=== PATIENT | female | born 1955 | race Caucasian/White ===

== ENCOUNTER 2018-10-29 09:01 | Outpatient (CLI) | payer OTHER ==
[2018-10-29 17:53] LABS: BASOPHILS # (AUTO) 0.1 10^3/uL (0.0-0.1); BASOPHILS % (AUTO) 0.8 %; EOSINOPHILS # (AUTO) 0.1 10^3/uL (0.0-0.7); EOSINOPHILS % (AUTO) 1.4 %; HGB - HEMOGLOBIN 14.4 g/dL (12.0-16.0); LYMPHOCYTES # (AUTO) 1.5 10^3/uL (1.5-3.5); LYMPHOCYTES % (AUTO) 23.4 %; MEAN CORPUSCULAR HGB CONC 30.6 g/dL (32.0-36.0); MEAN CORPUSCULAR VOLUME 91.4 fL (81.0-99.0); MEAN PLATELET VOLUME 10.6 fL (7.9-10.8); MONOCYTES # (AUTO) 0.4 10^3/uL (0.0-1.0); NEUTROPHILS # (AUTO) 4.3 10^3/uL (1.5-6.6); NEUTROPHILS % (AUTO) 67.2 %; PLT - PLATELET COUNT 321 10^3/uL (130-450); RED BLOOD COUNT 5.14 10^6/uL (4.20-5.40); RED CELL DISTRIBUTION WIDTH 13.3 % (12.0-15.0); WHITE BLOOD COUNT 6.3 x10^3/uL (4.8-10.8)
[2018-10-29 18:07] LABS: HB2 TOTAL 15.2 g/dL; HEMOGLOBIN A1C 0.63 g/dL; HEMOGLOBIN A1C % 5.9 % (4.6-6.2)
[2018-10-29 18:09] LABS: RHEUMATOID FACTOR NEGATIVE (Negative)
[2018-10-29 18:13] LABS: ALBUMIN 4.3 g/dL (3.2-5.5); ALBUMIN/GLOBULIN RATIO 1.3 (1.0-2.2); ALKALINE PHOSPHATASE 84 IU/L (42-121); ALT ALANINE AMINOTRANSFERASE 29 IU/L (10-60); AST ASPARTATE AMINOTRANSFERASE 25 IU/L (10-42); BILIRUBIN,TOTAL 0.8 mg/dL (0.2-1.0); BUN - BLOOD UREA NITROGEN 16 mg/dL (6-20); CALCIUM 10.3 mg/dL (8.5-10.3); CARBON DIOXIDE - CO2 26 mmol/L (21-32); CHLORIDE 103 mmol/L (101-111); CHOL/HDL RATIO 4.7 (<4.4); CHOLESTEROL 284 mg/dL; CREATININE 0.9 mg/dL (0.4-1.0); GFR - MDRD 63 (>89); GLUCOSE 124 mg/dL (70-100); HDL CHOLESTEROL 61 mg/dL; LDL CHOLESTEROL,CALCULATED 193 mg/dL; LDL/HDL RATIO 3.2 (<4.4); SODIUM 139 mmol/L (135-145); TOTAL PROTEIN 7.5 g/dL (6.7-8.2); VLDL CHOLESTEROL 30 mg/dL
[2018-10-31 13:01] LABS: ANA SCREEN NEGATIVE (NEGATIVE)
== END 2018-10-29 09:02 | disposition home or self-care (01) ==
LOC: LAB.F 09:01
PROVIDERS: ATTEND Registered Nurse
DX: Z00.00 Encounter for general adult medical examination without abnormal findings (principal); R53.83 Other fatigue; E78.5 Hyperlipidemia, unspecified; G47.9 Sleep disorder, unspecified; M25.549 Pain in joints of unspecified hand
CPT/HCPCS: 36415; 80053; 80061; 83036; 83721; 84443; 85025; 86038; 86430

== ENCOUNTER 2018-11-25 13:48 | Outpatient (CLI) | payer OTHER ==
--- NOTE | 2018-11-26 10:21 | DEXA Report ---
Reason: PREVENTIVE CARE,MENOPAUSAL STATE Procedure Date: 11/25/2018 Accession Number: [id number] / [id number] Procedure: DEX - Dexa Spine and/or Hip CPT Code: FULL RESULT: EXAM: Dexa Spine and/or Hip DATE: 11/25/2018 2:24 PM CLINICAL HISTORY: PREVENTIVE CARE,MENOPAUSAL STATE TECHNIQUE: Dual energy x-ray absorptiometry (DXA) was performed on a [employer]. Regions measured are the AP Spine, femoral neck, and if needed forearm. COMPARISON: None. In accordance with the International Society for Clinical Densitometry (ISCD) guidelines, data from previous exams may be reanalyzed using current recommendations and techniques. This is done to allow a more accurate basis for comparison with the current study. FINDINGS: The data for the lumbar spine is as follows: BMD (g/cm/cm) T-SCORE Z-SCORE REGION L1 1.184 0.5 0.8 L2 1.226 0.2 0.6 L3 1.379 1.5 1.9 L4 1.496 2.5 2.8 TOTAL 1.333 1.3 1.6 NOTE: All evaluable vertebrae are used for classification The data for the hip is as follows: BMD (g/cm/cm) T-SCORE Z-SCORE REGION Neck 0.851 -1.3 -0.7 TOTAL 0.870 -1.1 -0.8 NOTE: The femoral neck or total proximal femur, whichever is lowest, is used for classification. IMPRESSION: THE WHO CLASSIFICATION BASED ON THE INTERNATIONAL REFERENCE STANDARD IS OSTEOPENIA. THE FRACTURE RISK IS INCREASED. RECOMMENDATION: Patients with diagnosis of osteoporosis or osteopenia should have regular bone mineral density assessment. For those eligible for Medicare, routine testing is allowed once every 2 years. Testing frequency can be increased for patients who have rapidly progressing disease or for those who are receiving medical therapy to restore bone mass. COMMENT: World Health Organization (WHO) definitions for osteoporosis and osteopenia: NORMAL BMD: T-score at -1.0 or higher, fracture risk is low OSTEOPENIA BMD: T-score between -1.0 and -2.5, fracture risk is increased. OSTEOPOROSIS BMD: T-score at -2.5 or lower, fracture risk is high. National Osteoporosis Foundation recommends: 1. Obtain adequate dietary calcium (at least 1200 mg per day) and vitamin D (400-800 international units per day). 2. Participate, as appropriate, in regular weightbearing and muscle-strengthening exercise. 3. Avoid tobacco use and reduce alcohol and caffeine intake. 4. For more detailed information see the website at www.NOF.org.
== END 2018-11-25 13:49 | disposition home or self-care (01) ==
LOC: DI 13:48
PROVIDERS: ATTEND Registered Nurse
DX: M85.89 Other specified disorders of bone density and structure, multiple sites (principal); Z78.0 Asymptomatic menopausal state
CPT/HCPCS: 77080

== ENCOUNTER 2019-12-31 07:30 | Outpatient (CLI) | payer MEDICARE, OTHER ==
[2019-12-31 15:26] LABS: BASOPHILS # (AUTO) 0.1 10^3/uL (0.0-0.1); BASOPHILS % (AUTO) 0.7 %; EOSINOPHILS # (AUTO) 0.1 10^3/uL (0.0-0.7); EOSINOPHILS % (AUTO) 1.3 %; HGB - HEMOGLOBIN 13.7 g/dL (12.0-16.0); LYMPHOCYTES # (AUTO) 1.6 10^3/uL (1.5-3.5); LYMPHOCYTES % (AUTO) 23.5 %; MEAN CORPUSCULAR HEMOGLOBIN 27.9 pg (27.0-31.0); MEAN CORPUSCULAR HGB CONC 31.1 g/dL (32.0-36.0); MEAN CORPUSCULAR VOLUME 89.8 fL (81.0-99.0); MONOCYTES # (AUTO) 0.5 10^3/uL (0.0-1.0); MONOCYTES % (AUTO) 7.7 %; NEUTROPHILS # (AUTO) 4.6 10^3/uL (1.5-6.6); NEUTROPHILS % (AUTO) 66.5 %; PLT - PLATELET COUNT 341 10^3/uL (130-450); RED BLOOD COUNT 4.91 10^6/uL (4.20-5.40); RED CELL DISTRIBUTION WIDTH 13.1 % (12.0-15.0); WHITE BLOOD COUNT 6.9 x10^3/uL (4.8-10.8)
[2019-12-31 15:49] LABS: ALBUMIN 4.2 g/dL (3.2-5.5); ALBUMIN/GLOBULIN RATIO 1.3 (1.0-2.2); ALKALINE PHOSPHATASE 97 IU/L (42-121); ALT ALANINE AMINOTRANSFERASE 27 IU/L (10-60); AST ASPARTATE AMINOTRANSFERASE 22 IU/L (10-42); BILIRUBIN,TOTAL 0.8 mg/dL (0.2-1.0); BUN - BLOOD UREA NITROGEN 16 mg/dL (6-20); CALCIUM 10.5 mg/dL (8.5-10.3); CARBON DIOXIDE - CO2 30 mmol/L (21-32); CHLORIDE 100 mmol/L (101-111); CHOL/HDL RATIO 4.9 (<4.4); CHOLESTEROL 267 mg/dL; GLUCOSE 139 mg/dL (70-100); HDL CHOLESTEROL 54 mg/dL; LDL CHOLESTEROL,CALCULATED 181 mg/dL; LDL/HDL RATIO 3.4 (<4.4); SODIUM 138 mmol/L (135-145); TOTAL PROTEIN 7.4 g/dL (6.7-8.2); VLDL CHOLESTEROL 32 mg/dL
[2019-12-31 16:13] LABS: HB2 TOTAL 14.5 g/dL; HEMOGLOBIN A1C 0.62 g/dL; HEMOGLOBIN A1C % 6.1 % (4.6-6.2)
== END 2019-12-31 07:31 | disposition home or self-care (01) ==
LOC: LAB.S 07:30
PROVIDERS: ATTEND Registered Nurse
DX: E03.9 Hypothyroidism, unspecified (principal); I10 Essential (primary) hypertension; E78.5 Hyperlipidemia, unspecified
CPT/HCPCS: 36415; 80053; 80061; 83036; 83721; 84443; 85025

== ENCOUNTER 2020-07-13 09:50 | Outpatient (CLI) | payer MEDICARE ==
[2020-07-13 15:38] LABS: BUN - BLOOD UREA NITROGEN 18 mg/dL (6-20); CALCIUM 10.5 mg/dL (8.5-10.3); CARBON DIOXIDE - CO2 29 mmol/L (21-32); CHLORIDE 103 mmol/L (101-111); CHOL/HDL RATIO 5.3 (<4.4); CHOLESTEROL 265 mg/dL; CREATININE 0.9 mg/dL (0.4-1.0); GFR - MDRD 63 (>89); GLUCOSE 121 mg/dL (70-100); HDL CHOLESTEROL 50 mg/dL; LDL CHOLESTEROL,CALCULATED 180 mg/dL; LDL/HDL RATIO 3.6 (<4.4); POTASSIUM 3.7 mmol/L (3.5-5.0); SODIUM 137 mmol/L (135-145); TRIGLYCERIDES 175 mg/dL; VLDL CHOLESTEROL 35 mg/dL
[2020-07-13 15:46] LABS: THYROID STIMULATING HORMONE 0.12 uIU/mL (0.34-5.60)
[2020-07-13 16:34] LABS: FREE T4 (FREE THYROXINE) 1.19 ng/dL (0.58-1.64)
[2020-07-13 20:03] LABS: ESTIMATED AVERAGE GLUCOSE 128 mg/dL (70-100); HEMOGLOBIN A1c% 6.1 % (4.27-6.07)
== END 2020-07-13 09:51 | disposition home or self-care (01) ==
LOC: LAB.S 09:50
PROVIDERS: ATTEND Registered Nurse
DX: R73.9 Hyperglycemia, unspecified (principal); E03.9 Hypothyroidism, unspecified; I10 Essential (primary) hypertension; E78.5 Hyperlipidemia, unspecified
CPT/HCPCS: 36415; 80048; 80061; 83036; 83721; 84439; 84443

== ENCOUNTER 2020-08-12 14:33 | Outpatient (CLI) | payer MEDICARE ==
[2020-08-12 15:26] VITALS: BP 131/84
--- NOTE | 2020-08-12 15:26 | SLEEP CARE CONSULTATION ---
Information from patient questionnaire entered by Rosalia Sherman. I have reviewed and concur with the information entered by Rosalia Sherman. This document represents the service I personally performed and the decisions made by me, Devi Arriaga ARNP. History of Present Illness Service Date and Time: 08/12/2020 1433 Reason for Visit: New patient Chief Complaint: reports: Unrefreshed sleep, Snoring, Frequent awakenings at night. denies: Observed pauses in breathing Date of Onset: + 20 years growing worse Usual bedtime: 11:30 Time it takes to fall asleep: time differs Snores at night: Yes Observed to quit breathing while asleep: No Sleeps alone due to snoring: No Number of times waking at night: 3-4 Reasons for waking at night: reports: Bathroom, Other (Unknown reason). denies: Choking, Snoring, Gasping for air Toss, Turn, or Twitch while sleeping: Yes Recalls having dreams: Yes Usually gets out of bed at: Differs - between 7-8 usually Feels refreshed in the morning: No Morning headache: No (used to have severe migraines, but only about 1 yearly) Sleepy or fatigued during the day: Yes (will fall asleep if she sits quietly) Ever fallen asleep while driving: No Takes day naps: No Dreams during day naps: No Prior sleep studies: No Additional HPI information: I had the pleasure of seeing JAVIER CAIN today regarding the possibility of her having a sleep disorder. Her current complaints are frequent night awakenings, insomnia and unrefreshed sleep. She has had problems sleeping that have been getting worse. She used to travel for her job and her sleeping schedule was sporadic and she was always sleeping new places. She is now retired. She is using TV for white noise when sleeping. She is waking up at 2 AM, wide awake. She will go back to bed after taking her dog out. It takes 30-40 minutes to go back to sleep. She has been told that she snores but not any pauses in breathing. She states if she comes home after 4-5 hours of work or after lunch she can sit down and fall asleep. 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 Patient is Single and lives in [place]. Have you smoked in the past 12 months: No Alcohol use: Yes Alcohol amount and frequency: 1 drink per week Caffeine use: Yes Caffeine amount and frequency: 4 cups coffee/tea daily Family History Family history of sleep disordered breathing: No Allergies and Home Medications Drug allergies reviewed: Yes (NKDA) Home medication list reviewed: Yes Allergy and home medication list: Levothyroxine HCTZ Losartan? possibly Metformin -statin for high cholesterol Review of Systems Weight gain over past 5 years: 10-15 Cardiovascular: reports: high blood pressure Gastrointestinal: reports: heartburn Urinary: reports: urgency Neurological: reports: headaches (in the past) Psychiatric: denies: anxiety, depression Ear/Nose/Throat: reports: wisdom teeth removed. denies: nasal congestion, dry mouth/throat, tonsillectomy Endocrine: reports: thyroid disease Musculoskeletal: reports: joint pain, joint swelling Immunologic: reports: allergies to food or environment Physical Exam Blood Pressure: 131/84 Cuff size: wrist Heart Rate: 80 O2 Saturation: 96 Height: 5 ft 10 in Weight: 219 lb Body Mass Index: 31.4 BMI Classification: Obese Nostrils: patent to airflow Mouth and throat: narrow oropharynx Soft palate: long Hard palate: normal Uvula visualization: 50% Mallampati Class II Tongue: enlarged in size with teeth [place] on lateral edges Tonsils: 1+ Chin and jaw: normal size and position Neck: normal w/o lymphadenopathy or thyromegaly Heart: regular rate and rhythm Lungs: clear bilaterally Impression and Plan 1. Suspected Obstructive Sleep Apnea-Hypopnea Syndrome, as suggested by a history of loud and irregular snoring, unrefreshed sleep, cognitive impairment, and excessive daytime sleepiness. I explained to patient that a narrow oropharynx and obesity are common predisposing factors for obstructive sleep apnea-hypopnea syndrome. I recommend proceeding to polysomnography to confirm the diagnosis and to assess severity. If the patient has significant sleep disordered breathing, a manual CPAP titration study will also be performed to find the optimal treatment pressure. I informed the patient of what the sleep studies involve and after some discussion, obtained agreement to proceed. The pathophysiology of obstructive sleep apnea-hypopnea syndrome was discussed with the patient and health risks of cardiovascular and cerebrovascular disease if not treated. Risks of drowsy driving discussed in detail and patient advised to avoid long distance driving and to tub puller at the first sign of drowsiness. Patient agreed to plan. * Schedule polysomnography +- manual CPAP titration study and return in 1-2 weeks after the study to discuss result and initiate therapy. * Avoid long distance driving or driving when feeling sleepy. * Avoid alcohol, sedative and muscle relaxant around bedtime. * Attempt to lose weight. * Review instructions provided by trained office staff on how to prepare for the sleep study. * Return for follow-up after sleep study completed. Counseling Topics: Weight loss health impact Visit Type: In Office Time Spent with Patient (minutes): 32 Provider Statement: I spent 100% of the Face to Face Visit with the patient with greater than 50% spent counseling the patient and coordination of care.
== END 2020-08-12 14:34 | disposition home or self-care (01) ==
LOC: SC 14:33
PROVIDERS: ATTEND Nurse Practitioner Family
DX: G47.10 Hypersomnia, unspecified (principal); R41.89 Other symptoms and signs involving cognitive functions and awareness; G47.8 Other sleep disorders; R06.83 Snoring; E66.9 Obesity, unspecified; Z68.31 Body mass index [BMI] 31.0-31.9, adult
CPT/HCPCS: 99203; G0463; 99212

== ENCOUNTER 2020-08-18 08:00 | Outpatient (CLI) | payer MEDICARE ==
[2020-08-18 20:01] LABS: BASOPHILS % (AUTO) 0.6 %; EOSINOPHILS # (AUTO) 0.1 10^3/uL (0.0-0.7); EOSINOPHILS % (AUTO) 1.8 %; HCT - HEMATOCRIT 45.6 % (37.0-47.0); HGB - HEMOGLOBIN 14.1 g/dL (12.0-16.0); LYMPHOCYTES # (AUTO) 2.1 10^3/uL (1.5-3.5); LYMPHOCYTES % (AUTO) 29.2 %; MEAN CORPUSCULAR HEMOGLOBIN 27.7 pg (27.0-31.0); MEAN CORPUSCULAR HGB CONC 30.9 g/dL (32.0-36.0); MEAN CORPUSCULAR VOLUME 89.6 fL (81.0-99.0); MEAN PLATELET VOLUME 9.9 fL (7.9-10.8); MONOCYTES # (AUTO) 0.4 10^3/uL (0.0-1.0); NEUTROPHILS # (AUTO) 4.5 10^3/uL (1.5-6.6); PLT - PLATELET COUNT 330 10^3/uL (130-450); RED BLOOD COUNT 5.09 10^6/uL (4.20-5.40); RED CELL DISTRIBUTION WIDTH 13.1 % (12.0-15.0); WHITE BLOOD COUNT 7.2 x10^3/uL (4.8-10.8)
== END 2020-08-18 23:59 | disposition home or self-care (01) ==
LOC: LAB.S 08:00
PROVIDERS: ATTEND Physician Assistant Medical
DX: R59.0 Localized enlarged lymph nodes (principal)
CPT/HCPCS: 36415; 85025

== ENCOUNTER 2020-08-31 14:38 | Outpatient (CLI) | payer MEDICARE | END 2020-08-31 14:39 | disposition home or self-care (01) | LOC: SC 14:38 | PROVIDERS: ATTEND Nurse Practitioner Family | DX: G47.10 Hypersomnia, unspecified (principal); R06.83 Snoring; R41.89 Other symptoms and signs involving cognitive functions and awareness; E66.9 Obesity, unspecified; Z68.31 Body mass index [BMI] 31.0-31.9, adult | CPT/HCPCS: G0399 ×2; 95806 ==

== ENCOUNTER 2020-09-08 11:42 | Outpatient (CLI) | payer MEDICARE ==
--- NOTE | 2020-09-08 11:58 | SLEEP CARE CONSULTATION ---
Information from patient questionnaire entered by Rosalia Sherman. I have reviewed and concur with the information entered by Rosalia Sherman. This document represents the service I personally performed and the decisions made by , Devi Arriaga ARNP. History of Present Illness Service Date and Time: 09/08/2020 1140 Initial [place] Sleepiness Scale score: 13 (in 2020) Current [place] Sleepiness Scale score: 13 Additional HPI information: JAVIER CAIN returns via Telehealth visit for follow up and results of the recently performed home sleep study. The patient was informed of the following findings: no significant sleep disordered breathing with an average AHI of 3.9 and deann oxygen saturation of 85%. I explained the pathophysiology behind obstructive sleep apnea. Patient does not have sleep apnea and was advised how weight gain could increase the risk of developing sleep apnea in the future. I strongly encouraged the patient to lose weight. Patient has moderate snoring. Snoring can be reduced by weight loss. Weight loss is best achieved with diet consult. Patient instructed to contact PCP for referral. Snoring can also be treated with an oral appliance from a dentist. Advised to check insurance coverage. In addition, an ENT evaluation can be do to see if other treatment is indicated. Patient was cautioned about risks of drowsy driving until sleepiness symptoms resolve. Sleep Study - Results Type of Sleep Study: Home sleep study Prior sleep studies: No Polysomnography/Home Sleep Study results: Physician Impression: The quality of the study is good. The length of the study is adequate (> 240 minutes). Please also see the tabulated and graphic data. 1. No significant sleep disordered breathing, with an AHI of 3.9/hr and deann SaO2 of 85%. During the study, the patient had 11 apneas (11 obstructive, 0 central, 0 mixed) and 13 hypopneas. The longest episode lasted 99.5 seconds. The few respiratory events occurred only during supine sleep (supine AHI was 4.0 and non-supine, 0.00). 2. Hypoxemia (ICD-10 R09.02), minimal, with the lowest oxygen saturation of 85 % and 2.0 minutes with SaO2 under 90%. Baseline oxygen saturation was normal (Average oxygen saturation was 94%). Allergies and Home Medications Home medication list reviewed: Yes (no new meds) Review of Systems Review of systems same as previous: Yes ( no changes) Physical Exam Vital signs obtained and entered by: Telehealth visit to reduce exposure during Covid pandemic Height: 5 ft 10 in Impression and Plan 1. Insomnia, unspecified. Patient has difficulty going to sleep and staying asleep. She states she lays down and then watches TV in bed for about 2 hours before going to sleep. She feels she gets about 5-6 hours of sleep nightly and has since she became an adult. Insomnia is generally caused by an irregular sleep schedule, spending too much time in bed, napping, caffiene, electronics, lack of a relaxing bedtime ritual and clock watching. Other factors can include anxiety/depression, pain, medications, and obstructive sleep apnea. I advised her to look at her sleep hygiene and I will send her a pamphlet on How to sleep better by AAS to review. First I counseled the patient on the importance of a regular sleep schedule, starting with the wake time. I explained the homestatic sleep drive and how maintaining a regular wake time will allow the patient to be tired enough to sleep 15-16 hours later. By waking at the same time, the patient will also feel more alert. Most caffeine is to be stopped after lunch as it has a 6 hour half l david and reduce sleep latency and efficiency. In addition, it is important to have a relaxing ritual to allow the mind/body transition from an active day to sleep. If unable to go to sleep in an estimated 20 minutes of more, it is advised to leave the bedroom and engage in a quiet activity until sleepy enough to return to bed. 2. Minimal snoring but no significant sleep disordered breathing. Patient advised that often weight loss will reduce snoring as well as apnea risk. An oral appliance can also be used for snoring. This would require a dental consultation. Patient cautioned not to use other online appliances as can cause bite issues. A list of accredited dentists in [facility] and one local dentist who makes oral appliances is available in the office. Patient is advised to check if insurance will cover. An ENT consult can also be helpful to determine if any other treatment is an option. * Attempt to lose weight * Avoid alcohol consumption near bedtime * The patient is cautioned about driving until sleepiness is completely resolved. * Return in as needed for follow up. Counseling Topics: Weight loss health impact Visit Type: Telehealth Video Video Type: VSee Patient Location: work Location of Provider: Office Patient agrees and consents to this telehealth visit type: Yes Patient agrees to have their insurance billed: Yes Time Spent with Patient (minutes): 20 Provider Statement: I spent 100% of the Telehealth Video Call with the patient with greater than 50% spent counseling the patient and coordination of care.
== END 2020-09-08 11:43 | disposition home or self-care (01) ==
LOC: SC 11:42
PROVIDERS: ATTEND Nurse Practitioner Family
DX: G47.00 Insomnia, unspecified (principal); R06.83 Snoring

== ENCOUNTER 2021-02-16 07:59 | Outpatient (CLI) | payer MEDICARE ==
[2021-02-16 14:57] LABS: BASOPHILS # (AUTO) 0.1 10^3/uL (0.0-0.1); BASOPHILS % (AUTO) 0.8 %; EOSINOPHILS # (AUTO) 0.1 10^3/uL (0.0-0.7); EOSINOPHILS % (AUTO) 1.6 %; HCT - HEMATOCRIT 44.2 % (37.0-47.0); HGB - HEMOGLOBIN 13.6 g/dL (12.0-16.0); LYMPHOCYTES # (AUTO) 1.7 10^3/uL (1.5-3.5); LYMPHOCYTES % (AUTO) 27.8 %; MEAN CORPUSCULAR HGB CONC 30.8 g/dL (32.0-36.0); MEAN CORPUSCULAR VOLUME 90.9 fL (81.0-99.0); MONOCYTES # (AUTO) 0.4 10^3/uL (0.0-1.0); NEUTROPHILS # (AUTO) 3.8 10^3/uL (1.5-6.6); NEUTROPHILS % (AUTO) 62.5 %; PLT - PLATELET COUNT 331 10^3/uL (130-450); RED BLOOD COUNT 4.86 10^6/uL (4.20-5.40); WHITE BLOOD COUNT 6.1 x10^3/uL (4.8-10.8)
[2021-02-16 15:35] LABS: ALBUMIN 4.4 g/dL (3.2-5.5); ALBUMIN/GLOBULIN RATIO 1.6 (1.0-2.2); ALKALINE PHOSPHATASE 102 IU/L (42-121); ALT ALANINE AMINOTRANSFERASE 26 IU/L (10-60); AST ASPARTATE AMINOTRANSFERASE 22 IU/L (10-42); BILIRUBIN,TOTAL 0.8 mg/dL (0.2-1.0); BUN - BLOOD UREA NITROGEN 16 mg/dL (6-20); CALCIUM 10.5 mg/dL (8.5-10.3); CARBON DIOXIDE - CO2 29 mmol/L (21-32); CHLORIDE 102 mmol/L (101-111); CHOL/HDL RATIO 3.5 (<4.4); CHOLESTEROL 202 mg/dL; CREATININE 0.8 mg/dL (0.4-1.0); GFR - MDRD 72 (>89); GLUCOSE 133 mg/dL (70-100); HDL CHOLESTEROL 57 mg/dL; LDL CHOLESTEROL,CALCULATED 114 mg/dL; POTASSIUM 3.9 mmol/L (3.5-5.0); SODIUM 140 mmol/L (135-145); THYROID STIMULATING HORMONE 1.46 uIU/mL (0.34-5.60); TOTAL PROTEIN 7.2 g/dL (6.7-8.2); TRIGLYCERIDES 155 mg/dL; VLDL CHOLESTEROL 31 mg/dL
[2021-02-16 15:37] LABS: CREATININE,URINE 101.6 mg/dL; MICROALBUM/CREATININE RATIO,UR 14.8 ug/mg (<30.0); MICROALBUMIN,URINE 1.5 mg/dL (0-300.0)
[2021-02-16 20:46] LABS: ESTIMATED AVERAGE GLUCOSE 131 mg/dL (70-100); HEMOGLOBIN A1c% 6.2 % (4.27-6.07)
== END 2021-02-16 08:00 | disposition home or self-care (01) ==
LOC: LAB.S 07:59
PROVIDERS: ATTEND Registered Nurse
DX: E83.52 Hypercalcemia (principal); E88.81 Metabolic syndrome and other insulin resistance; R73.9 Hyperglycemia, unspecified; E03.9 Hypothyroidism, unspecified; I10 Essential (primary) hypertension; E78.5 Hyperlipidemia, unspecified
CPT/HCPCS: 36415; 80053; 80061; 82043; 82570; 83036; 83721; 84443; 85025

== ENCOUNTER 2021-11-01 08:07 | Outpatient (CLI) | payer MEDICARE ==
[2021-11-01 15:08] LABS: CALCIUM 10.6 mg/dL (8.5-10.3); CREATININE 0.9 mg/dL (0.4-1.0); POTASSIUM 3.9 mmol/L (3.5-5.0)
[2021-11-01 20:38] LABS: ESTIMATED AVERAGE GLUCOSE 131 mg/dL (70-100); HEMOGLOBIN A1c% 6.2 % (4.27-6.07)
== END 2021-11-01 08:08 | disposition home or self-care (01) ==
LOC: LAB.S 08:07
PROVIDERS: ATTEND Registered Nurse
DX: I10 Essential (primary) hypertension (principal); R73.9 Hyperglycemia, unspecified
CPT/HCPCS: 36415; 80048; 83036

== ENCOUNTER 2021-11-21 13:27 | Outpatient (CLI) | payer MEDICARE ==
--- NOTE | 2021-12-04 09:03 | Mammography Report ---
BILATERAL DIGITAL SCREENING MAMMOGRAM 3D/2D WITH EXAGGERATED CC: 11/21/2021 CLINICAL: Routine screening. No prior exams were available for comparison. The tissue of both breasts is predominantly fatty. There is an irregular asymmetry in the left breast at 4 o'clock anterior depth. No other significant masses, calcifications, or other findings are seen in either breast. IMPRESSION: INCOMPLETE: NEEDS ADDITIONAL IMAGING EVALUATION The irregular asymmetry in the left breast is indeterminate. Additional views with possible ultrasou nd are recommended. Based on the Tyrer Cuzick model (a risk assessment model) the patients lifetime risk is 5.3% and her 10 year risk is 2.8%. According to the ACR, ACS, and NCCN guidelines, an annual breast MRI exam kobi g with mammogram is recommended if the patients lifetime risk is 20% or greater. This exam was interpreted at Station ID: [id number]. NOTE: For mammograms, a report in lay terms will be sent to the patient. Approximately 15% of breast malignancies will not be visualized mammographically. In the management of a palpable breast mass, a negative mammogram must not discourage biopsy of a clinically suspicious lesion. Electronically Signed By: Preet Hurt acr/:12/01/2021 16:40:27 ACR BI-RADS Category 0: Incomplete 3340F PARENCHYMAL PATTERN: (F) - The breast(s) demonstrate(s) diffuse fatty replacement. BI-RADS CATEGORY: (0) - 0 Mammo and [place] [id number] Immediate follow-up LATERALITY: (L)
== END 2021-11-21 13:28 | disposition home or self-care (01) ==
LOC: DI.S 13:27
PROVIDERS: ATTEND Registered Nurse
DX: Z12.31 Encounter for screening mammogram for malignant neoplasm of breast (principal); R92.8 Other abnormal and inconclusive findings on diagnostic imaging of breast

== ENCOUNTER 2021-12-07 13:49 | Outpatient (CLI) | payer MEDICARE ==
--- NOTE | 2021-12-07 16:37 | Ultrasound Report ---
PROCEDURE: Retroperitoneal INDICATIONS: ELEVATED PARATHYROID HORMONE TECHNIQUE: Real-time scanning was performed of the retroperitoneal organs, with image documentation. COMPARISON: None. FINDINGS: Kidneys: Kidneys are normal in size. Right kidney measures 10.7 cm long; left kidney measures 12.6 cm long. Right renal cortical thickness is 1.4 cm; left renal cortical thickness is 1.6 cm. No radha d masses, hydronephrosis, or nephrolithiasis. Simple parapelvic cysts are noted on the left largest measuring 17 x 8 x 12 mm. Bladder: Pre-void bladder volume is 450 mL. Post-void residual is 7 mL. Pre-void images demonstrat e no intraluminal masses or stones. On pre-void images, both ureteral jets are noted with color Dopp ler interrogation. (Of note, ureteral jets may not be detectable in up to 25% of cases due to insuff icient differences in specific gravity between ureteral and bladder urine). Miscellaneous: No free abdominal fluid. IMPRESSION: Left parapelvic cysts. Otherwise, unremarkable exam. Reviewed by: Terra Calderon MD on 12/07/2021 4:36 PM PDT Approved by: Terra Calderon MD on 12/07/2021 4:36 PM PDT Station ID: [id number]
--- NOTE | 2021-12-07 16:51 | DEXA Report ---
PROCEDURE: Dexa Spine and/or Hip INDICATIONS: ELEVATED PARATHYROID HORMONE TECHNIQUE: Dual energy x-ray absorptiometry (DXA) was performed on a [employer]. Regions measur ed are the AP Spine, femoral neck, and if needed forearm. COMPARISON: None DEXA, . FINDINGS: Lumbar Spine: Bone Mineral Density 1.34 0 g/cm/cm,T score 1.3, normal. Left Hip: Bone Mineral Density 0.867 g/cm/cm,T score -1.1, osteopenic. Left Femoral Neck: Bone Mineral Density 0.795 g/cm/cm, T score -1.8, osteopenic. (T score greater or equal to -1.0: NORMAL) (T score from -1.1 to -2.4: OSTEOPENIA) (T score less than or equal to -2.5 to: OSTEOPOROSIS) Impression: Based on WHO criteria, the patient is osteopenic. Compared to the last exam on 11/25/2018, there is no significant change. Patients with diagnosis of osteoporosis or osteopenia should have regular bone mineral density assess ment. For those eligible for Medicare, routine testing is allowed once every 2 years. Testing frequ ency can be increased for patients who have rapidly progressing disease or for those who are receivin g medical therapy to restore bone mass. Reviewed by: Juanjose Tobar MD on 12/07/2021 4:49 PM PDT Approved by: Juanjose Tobar MD on 12/07/2021 4:49 PM PDT Station ID: [id number]
== END 2021-12-07 13:50 | disposition home or self-care (01) ==
LOC: DI 13:49
PROVIDERS: ATTEND Registered Nurse
DX: M85.89 Other specified disorders of bone density and structure, multiple sites (principal); N94.89 Other specified conditions associated with female genital organs and menstrual cycle; R79.89 Other specified abnormal findings of blood chemistry

== ENCOUNTER 2022-01-11 15:44 | Outpatient (CLI) | payer MEDICARE ==
--- NOTE | 2022-01-12 15:12 | Ultrasound Report ---
PROCEDURE: Head or Neck Soft Tissue INDICATIONS: THYROID NODULE TECHNIQUE: Real time scanning was performed of the neck region of interest, with image documentation . COMPARISON: None. FINDINGS: Previously described right thyroid lobe nodule is redemonstrated. This is a solid hypoechoi c nodule measuring 1.8 cm, with wider than tall geometry and no internal microcalcifications. IMPRESSION: Mildly suspicious right thyroid lobe nodule. Follow-up in 12 months recommended. Reviewed by: Constantine Acuna MD on 01/12/2022 3:11 PM PDT Approved by: Constantine Acuna MD on 01/12/2022 3:11 PM PDT Station ID: [id number]
== END 2022-01-11 15:45 | disposition home or self-care (01) ==
LOC: DI 15:44
PROVIDERS: ATTEND Registered Nurse
DX: E04.1 Nontoxic single thyroid nodule (principal)

== ENCOUNTER 2022-05-16 08:26 | Outpatient (CLI) | payer MEDICARE ==
[2022-05-16 15:06] LABS: BASOPHILS # (AUTO) 0.1 10^3/uL (0.0-0.1); BASOPHILS % (AUTO) 1.2 %; EOSINOPHILS # (AUTO) 0.1 10^3/uL (0.0-0.7); EOSINOPHILS % (AUTO) 1.5 %; HCT - HEMATOCRIT 44.4 % (37.0-47.0); HGB - HEMOGLOBIN 13.6 g/dL (12.0-16.0); LYMPHOCYTES # (AUTO) 1.9 10^3/uL (1.5-3.5); LYMPHOCYTES % (AUTO) 28.6 %; MEAN CORPUSCULAR HEMOGLOBIN 27.4 pg (27.0-31.0); MEAN CORPUSCULAR HGB CONC 30.6 g/dL (32.0-36.0); MEAN CORPUSCULAR VOLUME 89.5 fL (81.0-99.0); MEAN PLATELET VOLUME 10.2 fL (7.9-10.8); MONOCYTES # (AUTO) 0.5 10^3/uL (0.0-1.0); NEUTROPHILS # (AUTO) 4.2 10^3/uL (1.5-6.6); NEUTROPHILS % (AUTO) 61.4 %; PLT - PLATELET COUNT 325 10^3/uL (130-450); RED BLOOD COUNT 4.96 10^6/uL (4.20-5.40); RED CELL DISTRIBUTION WIDTH 13.1 % (12.0-15.0); WHITE BLOOD COUNT 6.8 x10^3/uL (4.8-10.8)
[2022-05-16 15:22] LABS: ALBUMIN 4.1 g/dL (3.2-5.5); ALBUMIN/GLOBULIN RATIO 1.2 (1.0-2.2); ALKALINE PHOSPHATASE 112 IU/L (42-121); ALT ALANINE AMINOTRANSFERASE 28 IU/L (10-60); AST ASPARTATE AMINOTRANSFERASE 23 IU/L (10-42); BILIRUBIN,TOTAL 0.8 mg/dL (0.2-1.0); BUN - BLOOD UREA NITROGEN 15 mg/dL (6-20); CALCIUM 10.7 mg/dL (8.5-10.3); CARBON DIOXIDE - CO2 31 mmol/L (21-32); CHLORIDE 100 mmol/L (101-111); CHOL/HDL RATIO 3.8 (<4.4); CHOLESTEROL 209 mg/dL; CREATININE 0.9 mg/dL (0.4-1.0); GFR - MDRD 62 (>89); GLUCOSE 138 mg/dL (70-100); HDL CHOLESTEROL 55 mg/dL; LDL CHOLESTEROL,CALCULATED 126 mg/dL; LDL/HDL RATIO 2.3 (<4.4); POTASSIUM 3.8 mmol/L (3.5-5.0); SODIUM 140 mmol/L (135-145); TOTAL PROTEIN 7.6 g/dL (6.7-8.2); TRIGLYCERIDES 139 mg/dL; VLDL CHOLESTEROL 28 mg/dL
[2022-05-16 16:02] LABS: THYROID STIMULATING HORMONE 0.41 uIU/mL (0.34-5.60)
== END 2022-05-16 08:27 | disposition home or self-care (01) ==
LOC: LAB.S 08:26
PROVIDERS: ATTEND Registered Nurse
DX: I10 Essential (primary) hypertension (principal); R73.9 Hyperglycemia, unspecified; E78.5 Hyperlipidemia, unspecified; E83.52 Hypercalcemia; E03.9 Hypothyroidism, unspecified; E04.1 Nontoxic single thyroid nodule
CPT/HCPCS: 36415; 80053; 80061; 83721; 84443; 85025

== ENCOUNTER 2022-08-15 09:55 | Outpatient (CLI) | payer MEDICARE ==
--- NOTE | 2022-08-15 10:09 | XRAY Report ---
PROCEDURE: Abdomen 2 View X-Ray INDICATIONS: ABDOMINAL BLOATING TECHNIQUE: 2 views of the abdomen were acquired. COMPARISON: None. FINDINGS: Surgical changes and devices: None. Bowel: No pneumoperitoneum. The bowel gas pattern is normal. Moderate colonic stool load. Soft tissues: No masses; visualized solid organ contours appear normal in size. No suspicious abdom inal calcifications. Bones: No suspicious bony abnormalities. IMPRESSION: Moderate colonic stool load. Reviewed by: Tyler Robles on 08/15/2022 8:48 AM PDT Approved by: Tyler Robles on 08/15/2022 8:48 AM PDT Station ID: [id number]
[2022-08-15 15:35] LABS: THYROID STIMULATING HORMONE 1.09 uIU/mL (0.34-5.60)
[2022-08-15 15:36] LABS: ALBUMIN 4.2 g/dL (3.2-5.5); ALBUMIN/GLOBULIN RATIO 1.6 (1.0-2.2); ALKALINE PHOSPHATASE 92 IU/L (42-121); ALT ALANINE AMINOTRANSFERASE 31 IU/L (10-60); AST ASPARTATE AMINOTRANSFERASE 31 IU/L (10-42); BILIRUBIN,TOTAL 0.9 mg/dL (0.2-1.0); BUN - BLOOD UREA NITROGEN 11 mg/dL (6-20); CALCIUM 10.9 mg/dL (8.5-10.3); CARBON DIOXIDE - CO2 29 mmol/L (21-32); CHLORIDE 104 mmol/L (101-111); CHOL/HDL RATIO 2.4 (<4.4); CHOLESTEROL 155 mg/dL; CREATININE 0.8 mg/dL (0.4-1.0); GFR - MDRD 71 (>89); GLUCOSE 99 mg/dL (70-100); HDL CHOLESTEROL 64 mg/dL; LDL CHOLESTEROL,CALCULATED 76 mg/dL; LDL/HDL RATIO 1.2 (<4.4); POTASSIUM 4.4 mmol/L (3.5-5.0); SODIUM 138 mmol/L (135-145); TOTAL PROTEIN 6.9 g/dL (6.7-8.2); TRIGLYCERIDES 73 mg/dL; VLDL CHOLESTEROL 15 mg/dL
[2022-08-15 20:36] LABS: ESTIMATED AVERAGE GLUCOSE 123 mg/dL (70-100); HEMOGLOBIN A1c% 5.9 % (4.27-6.07)
== END 2022-08-15 09:56 | disposition home or self-care (01) ==
LOC: DI.S 09:55
PROVIDERS: ATTEND Physician Assistant Medical
DX: R14.0 Abdominal distension (gaseous) (principal); E78.5 Hyperlipidemia, unspecified; R73.9 Hyperglycemia, unspecified; E88.81 Metabolic syndrome and other insulin resistance; E03.9 Hypothyroidism, unspecified
CPT/HCPCS: 36415; 80053; 80061; 83036; 83721; 84443

== ENCOUNTER 2022-08-17 13:51 | Outpatient (CLI) | payer MEDICARE ==
--- NOTE | 2022-08-20 09:36 | Ultrasound Report ---
LIMITED ULTRASOUND OF LEFT BREAST: 08/17/2022 CLINICAL: Patient returns today for 6 month follow up to evaluate an asymmetry in the left breast. Comparison is made to exams dated: 12/21/2021 ultrasound, 12/21/2021 mammogram, and 11/21/2021 mammogra [facility]. Color flow and real-time ultrasound of the left breast 3 o'clock region were performed. Andres scale images of the real-time examination were reviewed. There is a 0.7 cm x 0.2 cm x 0.4 cm mass with a circumscribed margin in the left breast at 3 o'clock posterior depth 5 cm from the nipple. This mass is hypoechoic with a hyperechoic rim and no posterio r acoustic shadowing or enhancement. This abnormality is not significantly changed and correlates wi mammography findings. Color flow imaging demonstrates that there is no increase in vascularity. IMPRESSION: PROBABLY BENIGN The 0.7 cm x 0.2 cm x 0.4 cm mass in the left breast most likely is a fibroadenoma and is probably be nign. A follow-up mammogram and an ultrasound in 6 months is recommended to demonstrate stability. This exam was interpreted at Station ID: [id number]. Electronically Signed By: Vito german/ridge:08/17/2022 16:26:58 Ultrasound BI-RADS: 3 Probably benign BI-RADS CATEGORY: (3) - 3 Mammo and [place] [id number] 6 month follow-up LATERALITY: (B)
== END 2022-08-17 13:52 | disposition home or self-care (01) ==
LOC: DI 13:51
PROVIDERS: ATTEND Registered Nurse
DX: N63.25 Unspecified lump in the left breast, overlapping quadrants (principal)

== ENCOUNTER 2022-12-25 06:35 | Outpatient (CLI) | payer MEDICARE ==
--- NOTE | 2022-12-25 09:37 | MRI Report ---
PROCEDURE: CERVICAL SPINE WO INDICATIONS: CERVICAL RADICULOPATHY TECHNIQUE: Noncontrast sagittal T1 spin echo and T2 fast spin echo, sagittal STIR, foraminal oblique sagittal T2 fast spin echo, and axial gradient echo or T2 fast spin echo through the cervical spine. COMPARISON: None. FINDINGS: Image quality: Excellent. Alignment and Curvature: Trace retrolisthesis of C3 on C4. Bone Marrow: Marrow demonstrates normal overall signal. Spinal Cord: Visualized spinal cord has normal size and signal. No cerebellar tonsillar herniation. Paraspinous Soft Tissues: No paravertebral masses. Prevertebral soft tissues are normal in thicknes s. C2-C3: Mild disc height loss. Disc bulge. Bilateral uncovertebral joint hypertrophy. Bilateral facet hypertrophy. No central canal stenosis. Moderate bilateral foraminal stenosis with flattening deform ity on the exiting bilateral C3 nerve roots. C3-C4: Mild disc height loss. Diffuse disc bulge. Disc material abuts the cord. AP diameter of the central canal is 9.2 mm. There is prominent bilateral uncovertebral joint hypertrophy. There is bilat eral facet hypertrophy. There is severe bilateral foraminal narrowing with bilateral foraminal C4 ner ve root impingement. C4-C5: Mild central posterior disc protrusion indenting on the cord. AP diameter of the central jd l is 9.2 mm. Bilateral uncovertebral joint hypertrophy. Prominent right facet hypertrophy. Moderate r ight foraminal narrowing. Moderate to severe left foraminal narrowing with a degree of left foraminal C5 nerve root impingement. C5-C6: Moderate chronic disc height loss. Moderately large diffuse disc bulge significantly impingin g on the ventral cord. AP diameter of the central canal is 7 mm. There is associated bilateral uncove rtebral joint hypertrophy with severe right lateral recess stenosis and marked left lateral recess st enosis. There is severe bilateral foraminal narrowing with significant bilateral foraminal C6 nerve r oot impingement. C6-C7: Moderate chronic disc height loss. Diffuse posterior disc plus osteophyte. AP diameter of the central canal is 8.8 mm. Prominent bilateral uncovertebral joint hypertrophy. Bilateral facet hypert rophy. Severe bilateral foraminal narrowing with bilateral foraminal C7 nerve root impingement. C7-T1: No canal stenosis or significant foraminal stenosis. Bilateral facet hypertrophy. IMPRESSION: 1. Severe underlying spondylitic change with multilevel facet arthropathy and uncovertebral joint hyp ertrophy. 2. Central canal stenosis is severe at C5-C6. It is mild at C3-C4 and C4-C5. There is moderate at C6- C7. 3. Significant multilevel foraminal narrowing as described above, with multilevel foraminal nerve liat t impingement. Findings include severe bilateral foraminal narrowing at C3-C4, moderate to severe lef t foraminal narrowing at C4-C5, severe bilateral foraminal narrowing at C5-C6, and severe bilateral f oraminal narrowing at C6-C7. Reviewed by: Sesar Lake MD on 12/25/2022 9:36 AM PDT Approved by: Sesar Lake MD on 12/25/2022 9:36 AM PDT Station ID: [id number]
== END 2022-12-25 06:36 | disposition home or self-care (01) ==
LOC: DI 06:35
PROVIDERS: ATTEND Physician Assistant
DX: M47.22 Other spondylosis with radiculopathy, cervical region (principal); M48.02 Spinal stenosis, cervical region

== ENCOUNTER 2023-01-24 16:35 | Outpatient (CLI) | payer MEDICARE ==
--- NOTE | 2023-01-25 11:25 | Ultrasound Report ---
PROCEDURE: Head or Neck Soft Tissue INDICATIONS: RIGHT THYROID NODULE TECHNIQUE: Real-time scanning was performed of the thyroid gland, with image documentation. COMPARISON: 01/11/2022 FINDINGS: Right: Thyroid lobe measures 2.5 x 1.5 x 1.4 cm, and is homogeneous in echotexture. Left: Thyroid lobe measures 3.2 x 1.0 x 0.9 cm, and is homogenous in echotexture. Isthmus: 0.2 mm thick. Nodule number: One Location: Right mid to inferior pole Size: 1.7 x 1.3 x 1.2 cm, previously 1.8 x 1.3 x 1.1 cm. Composition: Solid. Echogenicity: Hypoechoic. Shape: wider than tall. Margins: Smooth (0 points). Echogenic foci: None (0 points). Total points: 4 ACR TI-RADS category: Moderately suspicious. Bilateral benign-appearing cervical chain lymph nodes are present. IMPRESSION: 1. Stable size of right thyroid nodule. Despite stability, given size criteria, fine-needle aspiratio n is recommended. ACR TI-RADS definitions and recommendations: TI-RADS 1 (benign): 0 points. FNA not needed. TI-RADS 2 (not suspicious): 2 points. FNA not needed. TI-RADS 3 (mildly suspicious): 3 points. "FNA if 2.5 cm or larger, follow up if 1.5 cm or larger (at 1, 3, and 5 years). TI-RADS 4 (moderately suspicious): 4-6 points. "FNA if 1.5 cm or larger, follow up if 1 cm or larger (at 1, 2, 3, and 5 years). TI-RADS 5 (highly suspicious): 7 points or more. "FNA if 1 cm or larger, follow up if 0.5 cm or larger (every year for 5 years). Reviewed by: Shaneka Smith MD on 01/25/2023 11:24 AM PDT Approved by: Shaneka Smith MD on 01/25/2023 11:24 AM PDT Station ID: [id number]
== END 2023-01-24 16:36 | disposition home or self-care (01) ==
LOC: DI 16:35
PROVIDERS: ATTEND Registered Nurse
DX: E04.1 Nontoxic single thyroid nodule (principal)

== ENCOUNTER 2023-02-25 08:34 | Outpatient (CLI) | payer MEDICARE ==
[2023-02-25] MEDS ORDERED: LIDOCAINE-MPF 1% 5 ML VIAL ONE (09:10)
--- NOTE | 2023-02-25 16:45 | Ultrasound Report ---
PROCEDURE: FNA Bx w/US Gdn 1st Les INDICATIONS: THYROID NODULE TECHNIQUE: The indications, alternatives, benefits, risks, and complications of the procedure were explained to the patient. Written informed consent was obtained and placed in the chart. The area of interest wa s examined sonographically and a site was chosen for ultrasound guided percutaneous sampling. The sk in was prepared and draped in the usual fashion, and anesthetized with 1% lidocaine infiltrated from the skin down to the lesion. Multiple passes were then performed, with [facility] A bandage was applied to the area of access at completion of t he study. COMPARISON: None. FINDINGS: Location(s) of lesion(s) sampled: Right mid to lower pole thyroid lobe nodule [place]: 25 gauge hypodermic needles. Number of passes: 6 Medications: 1% lidocaine for local anaesthesia. Complications: None. IMPRESSION: Successful ultrasound-guided mid to lower pole right thyroid lobe nodule fine needle aspiration, with cytology results pending. Reviewed by: Pierre Platt MD on 02/25/2023 4:43 PM PDT Approved by: Pierre Platt MD on 02/25/2023 4:43 PM PDT Station ID: [id number]
[2023-02-25] MEDS ORDERED: LIDOCAINE-MPF 1% 5 ML VIAL TD ONE (17:22)
== END 2023-02-25 08:35 | disposition home or self-care (01) ==
LOC: DI 08:34
PROVIDERS: ATTEND Registered Nurse
DX: E04.1 Nontoxic single thyroid nodule (principal)
CPT/HCPCS: 10005

== ENCOUNTER 2023-03-12 09:39 | Outpatient (CLI) | payer MEDICARE ==
[2023-03-12 10:01] LABS: BASOPHILS # (AUTO) 0.1 10^3/uL (0.0-0.1); BASOPHILS % (AUTO) 0.8 %; EOSINOPHILS # (AUTO) 0.1 10^3/uL (0.0-0.7); EOSINOPHILS % (AUTO) 0.8 %; HCT - HEMATOCRIT 45.8 % (37.0-47.0); HGB - HEMOGLOBIN 14.5 g/dL (12.0-16.0); LYMPHOCYTES # (AUTO) 1.4 10^3/uL (1.5-3.5); LYMPHOCYTES % (AUTO) 22.6 %; MEAN CORPUSCULAR HEMOGLOBIN 28.5 pg (27.0-31.0); MEAN CORPUSCULAR HGB CONC 31.7 g/dL (32.0-36.0); MEAN PLATELET VOLUME 9.8 fL (7.9-10.8); MONOCYTES # (AUTO) 0.5 10^3/uL (0.0-1.0); MONOCYTES % (AUTO) 8.4 %; NEUTROPHILS # (AUTO) 4.2 10^3/uL (1.5-6.6); NEUTROPHILS % (AUTO) 67.1 %; PLT - PLATELET COUNT 285 10^3/uL (130-450); RED BLOOD COUNT 5.09 10^6/uL (4.20-5.40); RED CELL DISTRIBUTION WIDTH 13.2 % (12.0-15.0); WHITE BLOOD COUNT 6.2 x10^3/uL (4.8-10.8)
[2023-03-12 10:31] LABS: THYROID STIMULATING HORMONE 3.75 uIU/mL (0.34-5.60)
[2023-03-12 10:38] LABS: FERRITIN 85.5 ng/mL (11.0-306.8)
[2023-03-12 10:51] LABS: ALBUMIN 4.6 g/dL (3.2-5.5)
[2023-03-12 11:32] LABS: ALBUMIN/GLOBULIN RATIO 1.7 (1.0-2.2); BILIRUBIN,TOTAL 0.7 mg/dL (0.2-1.0); CREATININE 0.9 mg/dL (0.6-1.3); POTASSIUM 5.1 mmol/L (3.5-4.5); TOTAL PROTEIN 7.3 g/dL (6.4-8.9)
== END 2023-03-12 09:40 | disposition home or self-care (01) ==
LOC: LAB 09:39
PROVIDERS: ATTEND Nurse Practitioner
DX: L65.9 Nonscarring hair loss, unspecified (principal)
CPT/HCPCS: 36415; 80053; 82306; 82607; 82728; 83540; 83970; 84439; 84443; 84466; 84481; 85025

== ENCOUNTER 2023-03-14 15:36 | Outpatient (CLI) | payer MEDICARE ==
--- NOTE | 2023-03-14 16:27 | XRAY Report ---
PROCEDURE: Chest 2 View X-Ray INDICATIONS: HYPERCALCEMIA TECHNIQUE: 2 views of the chest were acquired. COMPARISON: None. FINDINGS: Surgical changes and devices: None. Lungs and pleura: No pleural effusions or pneumothorax. Lungs are clear. Mediastinum: Mediastinal contours appear normal. Heart size is normal. Bones and chest wall: No suspicious bony lesions. Overlying soft tissues appear unremarkable. IMPRESSION: No acute cardiopulmonary process. Reviewed by: Tyler Robles on 03/14/2023 4:25 PM PDT Approved by: Tyler Robles on 03/14/2023 4:25 PM PDT Station ID: [id number]
== END 2023-03-14 15:37 | disposition home or self-care (01) ==
LOC: DI 15:36
PROVIDERS: ATTEND Registered Nurse
DX: E83.52 Hypercalcemia (principal); E78.5 Hyperlipidemia, unspecified; E88.819 Insulin resistance, unspecified
CPT/HCPCS: 36415; 80053; 80061; 80069; 81599; 82330; 82340; 82397; 82570; 83036; 83721; 83735

== ENCOUNTER 2023-03-28 09:03 | Outpatient (CLI) | payer MEDICARE ==
[2023-03-28] MEDS ORDERED: LIDOCAINE-MPF 1% 5 ML VIAL ONE (09:44)
[2023-03-28] MEDS ORDERED: LIDOCAINE-MPF 1% 5 ML VIAL TD ONE (10:45)
--- NOTE | 2023-03-28 13:31 | Ultrasound Report ---
PROCEDURE: FNA Bx w/US Gdn 1st Les INDICATIONS: THYROID NODULE TECHNIQUE: The indications, alternatives, benefits, risks, and complications of the procedure were explained to the patient. Written informed consent was obtained and placed in the chart. The area of interest wa s examined sonographically and a site was chosen for ultrasound guided percutaneous sampling. The sk in was prepared and draped in the usual fashion, and anesthetized with 1% lidocaine infiltrated from the skin down to the lesion. Multiple passes were then performed, with [facility]. A bandage was applied to the area of access at completion of t he study. COMPARISON: Thyroid FNA 02/25/2023, thyroid ultrasound 09/23/2022 FINDINGS: Location of lesion sampled: Right thyroid [place]: 25 gauge hypodermic needles. Number of passes: 6 Medications: 1% lidocaine for local anaesthesia. Complications: None. IMPRESSION: Successful ultrasound-guided right thyroid nodule fine needle aspiration, with cytology results pendkarla hernandez. Reviewed by: Vito Schulte MD on 03/28/2023 1:30 PM PST Approved by: Vito Schulte MD on 03/28/2023 1:30 PM PST Station ID: [id number]
== END 2023-03-28 09:04 | disposition home or self-care (01) ==
LOC: DI 09:03
PROVIDERS: ATTEND Registered Nurse
DX: E04.1 Nontoxic single thyroid nodule (principal)
CPT/HCPCS: 10005

== ENCOUNTER 2023-04-19 09:44 | Outpatient (CLI) | payer MEDICARE ==
[2023-04-22 16:08] LABS: A/G RATIO 1.4 (0.7-1.7); ALBUMIN 3.8 g/dL (2.9-4.4); ALPHA-1-GLOBULIN 0.2 g/dL (0.0-0.4); ALPHA-2-GLOBULIN 0.8 g/dL (0.4-1.0); GAMMA GLOBULIN 0.8 g/dL (0.4-1.8); GLOBULIN TOTAL 2.8 g/dL (2.2-3.9); IMMUNOGLOBULIN A (IGA) 128 mg/dL (87-352); IMMUNOGLOBULIN G (IGG) 776 mg/dL (586-1602); IMMUNOGLOBULIN M (IGM) 45 mg/dL (26-217); M-SPIKE Not Observed g/dL (Not Observed); PROTEIN TOTAL 6.6 g/dL (6.0-8.5)
== END 2023-04-19 09:45 | disposition home or self-care (01) ==
LOC: LAB.S 09:44
PROVIDERS: ATTEND Registered Nurse
DX: L65.9 Nonscarring hair loss, unspecified (principal); E06.1 Subacute thyroiditis; E83.52 Hypercalcemia
CPT/HCPCS: 36415; 82607; 82784; 84155; 84165; 86334

== ENCOUNTER 2023-04-24 12:47 | Outpatient (CLI) | payer MEDICARE ==
--- NOTE | 2023-04-25 10:47 | Ultrasound Report ---
LIMITED ULTRASOUND OF LEFT BREAST: 04/24/2023 CLINICAL: Patient returns for a 6 month follow up of the left breast. Comparison is made to exams dated: 04/24/2023 mammogram, 08/17/2022 ultrasound, 12/21/2021 ultrasound, 12/21/2021 mammogram, and 11/21/2021 mammogram - [facility]. Color flow ultrasound of the left breast 3 o'clock region was performed. Andres scale images of the r eal-time examination were reviewed. There is a bilobed 6 mm cyst with a smooth internal wall in the left breast at 3 o'clock middle depth . This oval cyst is anechoic with a well-defined boundary and posterior acoustic enhancement. This correlates with mammography findings. Color flow imaging demonstrates that there is no vascularity p resent. The previous hypoechoic oval structure is no longer seen. IMPRESSION: BENIGN There is no sonographic evidence of malignancy. The 6 mm bilobed cyst in the left breast corresponds to today's mammogram finding, is consistent with two simple cysts and is benign. The previous oval sonographic finding is no longer seen. Return to annual mammogram screening schedule is recommended. Findings and recommendations were conve yed to the patient at time of exam. This exam was interpreted at Station ID: [id number]. Electronically Signed By: Shaneka reeves/:04/24/2023 14:12:36 Ultrasound BI-RADS: 2 Benign BI-RADS CATEGORY: (2) - 2 Mammogram [id number] return to screening LATERALITY: (B)
--- NOTE | 2023-04-25 10:47 | Mammography Report ---
BILATERAL DIGITAL DIAGNOSTIC MAMMOGRAM 3D/2D WITH CLEAVAGE: 04/24/2023 CLINICAL: 6 month follow up of the left breast, due for bilateral imaging. Comparison is made to exams dated: 12/21/2021 mammogram and 11/21/2021 mammogram - [facility]. There are scattered areas of fibroglandular density in both breasts (category b / 25%-50% glandular t issue). There is a 6 mm bilobed, oval, equal density focal asymmetry with a circumscribed margin in the left breast at 3 o'clock middle depth. This is seen in additional views. This is not significantly menendez ed in size, but has increased in thickness, becoming more bilobed in shape. No other significant masses, calcifications, or other findings are seen in either breast. Mammograms are otherwise stable. IMPRESSION: INCOMPLETE: NEEDS ADDITIONAL IMAGING EVALUATION The 6 mm asymmetry in the left breast has changed in shape but stable size. It is uncertain if this r epresents the same mammographic finding as previous exams. An ultrasound is recommended for further evaluation. This was performed immediately following this ex am. Mammograms are otherwise stable. Based on the Tyrer Cuzick model (a risk assessment model) the patients lifetime risk is 4.4% and her 10 year risk is 2.4%. According to the ACR, ACS, and NCCN guidelines, an annual breast MRI exam kobi g with mammogram is recommended if the patients lifetime risk is 20% or greater. This exam was interpreted at Station ID: [id number]. NOTE: For mammograms, a report in lay terms will be sent to the patient. Approximately 15% of breast malignancies will not be visualized mammographically. In the management of a palpable breast mass, a negative mammogram must not discourage biopsy of a clinically suspicious lesion. Electronically Signed By: Shaneka reeves/:04/24/2023 14:15:19 ACR BI-RADS Category 0: Incomplete 3340F PARENCHYMAL PATTERN: (A) - The breast(s) demonstrate(s) scattered fibroglandular densities. BI-RADS CATEGORY: (0) - 0 Ultrasound [id number] Immediate follow-up LATERALITY: (B)
== END 2023-04-24 12:48 | disposition home or self-care (01) ==
LOC: DI 12:47
PROVIDERS: ATTEND Registered Nurse
DX: R92.8 Other abnormal and inconclusive findings on diagnostic imaging of breast (principal); R92.323 Mammographic fibroglandular density, bilateral breasts

== ENCOUNTER 2023-06-11 07:00 | Outpatient (CLI) | payer MEDICARE ==
[2023-06-11 17:51] LABS: CREATININE,URINE 58.7 mg/dL
[2023-06-13 00:09] LABS: CALCIUM URINE 15.5 mg/dL (Not Estab.)
== END 2023-06-11 23:59 | disposition home or self-care (01) ==
LOC: LAB.S 07:00
PROVIDERS: ATTEND Internal Medicine Endocrinology, Diabetes & Metabolism
DX: E83.52 Hypercalcemia (principal)
CPT/HCPCS: 82340; 82570

== ENCOUNTER 2024-01-29 07:46 | Outpatient (CLI) | payer MEDICARE ==
[2024-01-29 14:56] LABS: BASOPHILS # (AUTO) 0.1 10^3/uL (0.0-0.1); EOSINOPHILS # (AUTO) 0.1 10^3/uL (0.0-0.7); EOSINOPHILS % (AUTO) 1.6 %; HCT - HEMATOCRIT 46.8 % (37.0-47.0); HGB - HEMOGLOBIN 14.7 g/dL (12.0-16.0); LYMPHOCYTES # (AUTO) 1.4 10^3/uL (1.5-3.5); LYMPHOCYTES % (AUTO) 26.6 %; MEAN CORPUSCULAR HEMOGLOBIN 28.8 pg (27.0-31.0); MEAN CORPUSCULAR HGB CONC 31.4 g/dL (32.0-36.0); MEAN CORPUSCULAR VOLUME 91.8 fL (81.0-99.0); MONOCYTES # (AUTO) 0.3 10^3/uL (0.0-1.0); MONOCYTES % (AUTO) 6.3 %; NEUTROPHILS # (AUTO) 3.3 10^3/uL (1.5-6.6); NEUTROPHILS % (AUTO) 64.5 %; PLT - PLATELET COUNT 298 10^3/uL (130-450); RED CELL DISTRIBUTION WIDTH 12.8 % (12.0-15.0); WHITE BLOOD COUNT 5.1 x10^3/uL (4.8-10.8)
[2024-01-29 16:08] LABS: THYROID STIMULATING HORMONE 6.05 uIU/mL (0.34-5.60)
[2024-01-29 16:17] LABS: ALBUMIN 4.4 g/dL (3.2-5.5); ALBUMIN/GLOBULIN RATIO 1.6 (1.0-2.2); ALKALINE PHOSPHATASE 89 IU/L (42-121); ALT ALANINE AMINOTRANSFERASE 22 IU/L (10-60); AST ASPARTATE AMINOTRANSFERASE 27 IU/L (10-42); BILIRUBIN,TOTAL 0.6 mg/dL (0.2-1.0); BUN - BLOOD UREA NITROGEN 13 mg/dL (6-20); CALCIUM 9.7 mg/dL (8.5-10.3); CARBON DIOXIDE - CO2 31 mmol/L (21-32); CHLORIDE 104 mmol/L (101-111); CHOL/HDL RATIO 3.4 (<4.4); CHOLESTEROL 266 mg/dL; CREATININE 0.9 mg/dL (0.6-1.3); GFR - MDRD 62 (>89); GLUCOSE 109 mg/dL (74-104); HDL CHOLESTEROL 79 mg/dL; LDL CHOLESTEROL,CALCULATED 162 mg/dL; LDL/HDL RATIO 2.1 (<4.4); POTASSIUM 4.2 mmol/L (3.5-4.5); SODIUM 141 mmol/L (135-145); TOTAL PROTEIN 7.2 g/dL (6.4-8.9); TRIGLYCERIDES 123 mg/dL; VLDL CHOLESTEROL 25 mg/dL
[2024-01-29 21:04] LABS: ESTIMATED AVERAGE GLUCOSE 114 mg/dL (70-100); HEMOGLOBIN A1c% 5.6 % (4.27-6.07)
== END 2024-01-29 07:47 | disposition home or self-care (01) ==
LOC: LAB.S 07:46
PROVIDERS: ATTEND Registered Nurse
DX: R73.9 Hyperglycemia, unspecified (principal); Z13.228 Encounter for screening for other metabolic disorders; Z13.220 Encounter for screening for lipoid disorders; Z13.29 Encounter for screening for other suspected endocrine disorder; Z13.0 Encounter for screening for diseases of the blood and blood-forming organs and certain disorders involving the immune mechanism
CPT/HCPCS: 36415; 80053; 80061; 83036; 83721; 84439; 84443; 85025